=== PATIENT | female | born 1945 | race Caucasian/White ===

== ENCOUNTER 2019-06-24 15:20 | Emergency (ER) | payer MEDICARE, OTHER ==
[~2019-06-24] VITALS: Ht 157.5 cm; Wt 49.1 kg
[~2019-06-24 15:20] MED LIST: CHOLESTEROL MED; OMEP-110 PO; PARO40TA61 PO
--- NOTE | 2019-06-24 15:57 | NUR ---
LAB AT BS. PT C/O PAIN TO LT FOOT, "IT'S UGLY". FOOT SLIGHTLY DISCOLORED, PEDAL PULSE DIMINISHED, SKIN INTACT. PT DENIES TRAUMA. CONGESTED COUGH NOTED - REPORTS COUGH X 3-4 DAYS. RESP EVEN & UNLABORED, SPEECH CLEAR, ABLE TO SPEAK IN COMPLETE SENTENCES. XR NOW AT BS.
[2019-06-24 16:05] LABS: BASOPHILS # (AUTO) 0.04 x10^3/uL (0-0.1); BASOPHILS % (AUTO) 1 % (0-1); EOSINOPHILS # (AUTO) 0.03 x10^3/uL (0-0.4); EOSINOPHILS % (AUTO) 0 % (1-7); LYMPHOCYTES # (AUTO) 1.93 x10^3/uL (1-3.4); LYMPHOCYTES % (AUTO) 23 % (22-44); MD NO; MEAN CORPUSCULAR HEMOGLOBIN 32.1 pg (27.0-34.8); MEAN CORPUSCULAR HGB CONC 33.3 g/dL (32.4-35.8); MEAN CORPUSCULAR VOLUME 96.2 fL (80-100); MONOCYTES # (AUTO) 0.57 x10^3/uL (0.2-0.8); MONOCYTES % (AUTO) 7 % (2-9); NEUTROPHILS % (AUTO) 69 % (42-75); PLATELET COUNT 173 x10^3/uL (130-400); RED BLOOD COUNT 4.41 x10^6/uL (3.82-5.3)
[2019-06-24 16:16] LABS: ALBUMIN 3.7 g/dL (3.4-5.0); ANION GAP 6 mmol/L (5-15); CALCIUM 9.5 mg/dL (8.5-10.1); CHLORIDE 111 mmol/L (98-107); CREATININE 1.65 mg/dL (0.55-1.02)
[2019-06-24 16:24] VITALS: BP 176/77
[2019-06-24] MEDS ORDERED: SIMV40TA20 PO (16:24)
[2019-06-24] MEDS ORDERED: HTN MED (16:27)
--- NOTE | 2019-06-24 16:33 | NUR ---
AMBULATORY TO [facility] BR W/ LIMPING GAIT, USING OWN CANE.
--- NOTE | 2019-06-24 16:45 | NUR ---
RETURNED TO ED ROOM W/OUT INCIDENT
== END 2019-06-24 17:16 | disposition home or self-care (01) ==
LOC: ED 15:57
DX: J44.1 Chronic obstructive pulmonary disease with (acute) exacerbation (principal); R05 Cough
CPT/HCPCS: 36415; 71045; 80048; 82040; 83605; 85025; 99284

== ENCOUNTER 2019-07-24 12:27 | Inpatient (IN) | payer MEDICARE ==
[~2019-07-24] VITALS: Ht 154.9 cm; Wt 59.0 kg
[~2019-07-24 12:27] MED LIST changes: +HTN MED; +SIMV40TA20 PO
--- NOTE | 2019-07-24 13:27 | NUR ---
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
--- NOTE | 2019-07-24 14:17 | NUR ---
LISA MEDINA AT BEDSIDE FOR EVALUATION
[2019-07-24] MEDS ORDERED: CEFTRIAXONE PMX 1GM/50ML 50 ML IVPB ONE (14:30)
[2019-07-24] MEDS ORDERED: SODIUM CHLORIDE FLUSH 10ML SYR IVF ONE (14:30)
[2019-07-24] MEDS ORDERED: CEFTRIAXONE PMX 1GM/50ML 50 ML ONE (14:37)
[2019-07-24 14:49] LABS: BASOPHILS # (AUTO) 0.04 x10^3/uL (0-0.1); BASOPHILS % (AUTO) 1 % (0-1); EOSINOPHILS # (AUTO) 0.07 x10^3/uL (0-0.4); EOSINOPHILS % (AUTO) 1 % (1-7); LYMPHOCYTES # (AUTO) 1.86 x10^3/uL (1-3.4); LYMPHOCYTES % (AUTO) 27 % (22-44); MD NO; MEAN CORPUSCULAR HEMOGLOBIN 32.5 pg (27.0-34.8); MEAN CORPUSCULAR HGB CONC 33.4 g/dL (32.4-35.8); MEAN CORPUSCULAR VOLUME 97.5 fL (80-100); MONOCYTES # (AUTO) 0.45 x10^3/uL (0.2-0.8); MONOCYTES % (AUTO) 7 % (2-9); NEUTROPHILS # (AUTO) 4.56 x10^3/uL (1.8-6.8); NEUTROPHILS % (AUTO) 65 % (42-75); PLATELET COUNT 282 x10^3/uL (130-400); RED BLOOD COUNT 4.32 x10^6/uL (3.82-5.3); RED CELL DISTRIBUTION WIDTH 17.3 % (9.6-15.2)
[2019-07-24] MEDS ORDERED: MORPHINE SULFATE 4 MG/ML, 1ML ONE ×2 (14:58→16:21)
[2019-07-24] MEDS ORDERED: ONDANSETRON 2MG/ML, 2ML ONE (14:58)
[2019-07-24] MEDS ORDERED: ONDANSETRON 2MG/ML, 2ML IVPush ONE (15:00)
[2019-07-24] MEDS: MORPHINE SULFATE 4 MG/ML, 1ML IVPush PRN ×2 (15:00→16:23)
[2019-07-24 15:04] LABS: ALBUMIN 3.5 g/dL (3.4-5.0); ANION GAP 6 mmol/L (5-15); CALCIUM 9.2 mg/dL (8.5-10.1); CHLORIDE 109 mmol/L (98-107); CREATININE 1.28 mg/dL (0.55-1.02)
--- NOTE | 2019-07-24 15:30 | NUR ---
ULTRASOUND AT BEDSIDE
[2019-07-24] MEDS ORDERED: LABETALOL 5MG/ML, 20ML IVPush PRN (17:00)
[2019-07-24] MEDS ORDERED: HEPARIN 5,000 UNITS/ML, 1ML SQ SCH (17:00)
[2019-07-24] MEDS ORDERED: ONDANSETRON 2MG/ML, 2ML IVPush PRN (17:00)
[2019-07-24] MEDS ORDERED: ACETAMINOPHEN 325 MG TABLET PO PRN (17:00)
[2019-07-24] MEDS ORDERED: hydrALAzine 20 MG/ML, 1ML IVPush PRN (17:00)
[2019-07-24] MEDS ORDERED: HEPARIN 5,000 UNITS/ML, 1ML ONE (17:11)
[2019-07-24] MEDS ORDERED: NICOTINE 21 MG/24 HR PATCH.TD24 ONE (17:11)
[2019-07-24] MEDS: NICOTINE 21 MG/24 HR PATCH.TD24 TD SCH (17:16)
[2019-07-24] MEDS: SODIUM CHLORIDE 0.9% 1,000 ML IV SCH (17:21)
--- NOTE | 2019-07-24 17:25 | NUR ---
MEDICATION REQUESTED FROM PHARMACY
[2019-07-24] MEDS: MEROPENEM 1 GM in SODIUM CHLORIDE 0.9% 100 ML IV SCH (18:07)
--- NOTE | 2019-07-24 18:16 | NUR ---
REPORT CALLED DENYS STROUD
[2019-07-24 19:12] VITALS: BP 163/80
[2019-07-24 20:31] LABS: CHOL/HDL RATIO 2.7
[2019-07-24] MEDS ORDERED: SIMVASTATIN 40 MG TABLET PO SCH (21:00)
[2019-07-24] MEDS ORDERED: NALOXONE 0.4 MG/ML, 1ML IVPush ONE (21:00)
[2019-07-24] MEDS ORDERED: HEPARIN 5,000 UNITS/ML, 1ML IV ONE (21:30)
[2019-07-24] MEDS ORDERED: OMNIPAQUE 350 MG/ML, 100ML BOTTLE ONE (21:57)
[2019-07-24] MEDS: HEPARIN 25,000 UNITS/250ML PMX 250 ML IV PRN (22:38)
[2019-07-25 02:09] VITALS: BP 160/67
[2019-07-25] MEDS: MEROPENEM 1 GM in SODIUM CHLORIDE 0.9% 100 ML IV SCH ×3 (02:29→17:28)
[2019-07-25] MEDS: morphine SULFATE 10 MG/ML, 1ML IVPush PRN ×2 (04:47→07:57)
[2019-07-25 04:57] LABS: BASOPHILS # (AUTO) 0.06 x10^3/uL (0-0.1); BASOPHILS % (AUTO) 1 % (0-1); EOSINOPHILS % (AUTO) 1 % (1-7); LYMPHOCYTES # (AUTO) 1.75 x10^3/uL (1-3.4); LYMPHOCYTES % (AUTO) 25 % (22-44); MD NO; MEAN CORPUSCULAR HEMOGLOBIN 32.5 pg (27.0-34.8); MEAN CORPUSCULAR HGB CONC 32.8 g/dL (32.4-35.8); MEAN PLATELET VOLUME 8.4 fL (7.4-10.4); MONOCYTES # (AUTO) 0.53 x10^3/uL (0.2-0.8); MONOCYTES % (AUTO) 8 % (2-9); NEUTROPHILS % (AUTO) 65 % (42-75); PLATELET COUNT 224 x10^3/uL (130-400); RED BLOOD COUNT 3.76 x10^6/uL (3.82-5.3)
[2019-07-25 05:08] LABS: ALBUMIN 2.8 g/dL (3.4-5.0); ANION GAP 8 mmol/L (5-15); CALCIUM 8.4 mg/dL (8.5-10.1); CHLORIDE 113 mmol/L (98-107)
[2019-07-25 05:13] LABS: ALANINE AMINOTRANSFERASE 16 U/L (12-78); ALKALINE PHOSPHATASE 65 U/L (45-117); BILIRUBIN,TOTAL 0.4 mg/dL (0.2-1.0); CREATININE 1.07 mg/dL (0.55-1.02); TOTAL PROTEIN 6.5 g/dL (6.4-8.2)
[2019-07-25] MEDS: SODIUM CHLORIDE 0.9% 1,000 ML IV SCH ×2 (05:46→16:53)
[2019-07-25] MEDS: HEPARIN 5,000 UNITS/ML, 1ML IV PRN ×2 (06:19→21:08)
[2019-07-25] MEDS: PAROXETINE 20 MG TABLET PO SCH (07:44)
[2019-07-25] MEDS: OMEPRAZOLE 20 MG CAPSULE.DR PO SCH (07:44)
[2019-07-25] MEDS: AMLODIPINE 10 MG TAB PO SCH (08:47)
[2019-07-25 09:15] VITALS: BP 152/67
[2019-07-25 14:09] VITALS: BP 175/72
[2019-07-25] MEDS: OXYcodone IR 5MG TABLET PO PRN ×2 (15:41→21:33)
[2019-07-25] MEDS: NICOTINE 21 MG/24 HR PATCH.TD24 TD SCH (16:53)
[2019-07-25 19:38] VITALS: BP 175/70
[2019-07-25] MEDS: ATORVASTATIN 40 MG TABLET PO SCH (21:09)
[2019-07-26 00:22] VITALS: BP_SYST 177; BP_SYST 201; BP_DIAS 46; BP_DIAS 70
[2019-07-26] MEDS: SODIUM CHLORIDE 0.9% 1,000 ML IV SCH ×3 (02:11→22:09)
[2019-07-26] MEDS: MEROPENEM 1 GM in SODIUM CHLORIDE 0.9% 100 ML IV SCH ×3 (02:11→22:05)
[2019-07-26 02:13] VITALS: BP 160/61
[2019-07-26 03:10] LABS: BASOPHILS # (AUTO) 0.02 x10^3/uL (0-0.1); BASOPHILS % (AUTO) 0 % (0-1); EOSINOPHILS % (AUTO) 1 % (1-7); LYMPHOCYTES # (AUTO) 1.37 x10^3/uL (1-3.4); LYMPHOCYTES % (AUTO) 19 % (22-44); MD NO; MEAN CORPUSCULAR HEMOGLOBIN 32.4 pg (27.0-34.8); MEAN CORPUSCULAR HGB CONC 33.5 g/dL (32.4-35.8); MEAN CORPUSCULAR VOLUME 96.7 fL (80-100); MEAN PLATELET VOLUME 8.6 fL (7.4-10.4); MONOCYTES # (AUTO) 0.55 x10^3/uL (0.2-0.8); MONOCYTES % (AUTO) 8 % (2-9); NEUTROPHILS % (AUTO) 71 % (42-75); PLATELET COUNT 231 x10^3/uL (130-400); RED BLOOD COUNT 3.71 x10^6/uL (3.82-5.3); RED CELL DISTRIBUTION WIDTH 16.3 % (9.6-15.2)
[2019-07-26 03:21] LABS: ALANINE AMINOTRANSFERASE 13 U/L (12-78); ALBUMIN 2.7 g/dL (3.4-5.0); ANION GAP 8 mmol/L (5-15); CALCIUM 8.4 mg/dL (8.5-10.1); CHLORIDE 111 mmol/L (98-107); CREATININE 0.94 mg/dL (0.55-1.02)
[2019-07-26 03:23] LABS: ALKALINE PHOSPHATASE 63 U/L (45-117); BILIRUBIN,TOTAL 0.5 mg/dL (0.2-1.0); TOTAL PROTEIN 6.1 g/dL (6.4-8.2)
[2019-07-26] MEDS: HEPARIN 5,000 UNITS/ML, 1ML IV PRN ×2 (03:33→16:51)
[2019-07-26] MEDS: HEPARIN 25,000 UNITS/250ML PMX 250 ML IV PRN (04:31)
[2019-07-26] MEDS: AMLODIPINE 10 MG TAB PO SCH (08:30)
[2019-07-26] MEDS: OMEPRAZOLE 20 MG CAPSULE.DR PO SCH (08:30)
[2019-07-26] MEDS: PAROXETINE 20 MG TABLET PO SCH (08:31)
[2019-07-26 08:41] VITALS: BP 192/64
[2019-07-26 12:04] VITALS: BP 117/61
[2019-07-26] MEDS: OXYcodone IR 5MG TABLET PO PRN ×2 (14:31→20:54)
[2019-07-26] MEDS: NICOTINE 21 MG/24 HR PATCH.TD24 TD SCH (16:55)
[2019-07-26 19:07] VITALS: BP 128/71
[2019-07-26] MEDS: ATORVASTATIN 40 MG TABLET PO SCH (20:54)
[2019-07-27 02:02] VITALS: BP 151/74
[2019-07-27 05:13] LABS: BASOPHILS # (AUTO) 0.04 x10^3/uL (0-0.1); BASOPHILS % (AUTO) 1 % (0-1); EOSINOPHILS # (AUTO) 0.16 x10^3/uL (0-0.4); EOSINOPHILS % (AUTO) 2 % (1-7); LYMPHOCYTES # (AUTO) 2.08 x10^3/uL (1-3.4); LYMPHOCYTES % (AUTO) 27 % (22-44); MD NO; MEAN CORPUSCULAR HEMOGLOBIN 32.2 pg (27.0-34.8); MEAN CORPUSCULAR HGB CONC 32.9 g/dL (32.4-35.8); MEAN CORPUSCULAR VOLUME 97.7 fL (80-100); MONOCYTES # (AUTO) 0.64 x10^3/uL (0.2-0.8); MONOCYTES % (AUTO) 8 % (2-9); NEUTROPHILS # (AUTO) 4.86 x10^3/uL (1.8-6.8); NEUTROPHILS % (AUTO) 63 % (42-75); PLATELET COUNT 246 x10^3/uL (130-400); RED BLOOD COUNT 3.74 x10^6/uL (3.82-5.3)
[2019-07-27 05:27] LABS: CHLORIDE 112 mmol/L (98-107)
[2019-07-27] MEDS: HEPARIN 25,000 UNITS/250ML PMX 250 ML IV PRN (05:39)
[2019-07-27 05:44] LABS: ALANINE AMINOTRANSFERASE 18 U/L (12-78); ALBUMIN 2.9 g/dL (3.4-5.0); ALKALINE PHOSPHATASE 66 U/L (45-117); ANION GAP 7 mmol/L (5-15); BILIRUBIN,TOTAL 0.7 mg/dL (0.2-1.0); CALCIUM 8.5 mg/dL (8.5-10.1); TOTAL PROTEIN 6.6 g/dL (6.4-8.2)
[2019-07-27] MEDS ORDERED: PROTAMINE SULFATE 10 MG/ML, 5ML ONE (07:09)
[2019-07-27] MEDS ORDERED: HEPARIN 1,000 UNITS/ML, 30ML ONE (07:10)
[2019-07-27] MEDS ORDERED: THROMBIN 20,000 UNIT VIAL TP ONE (07:10)
[2019-07-27] MEDS ORDERED: BUPIVACAINE/PF 0.5% ONE (07:27)
[2019-07-27] MEDS ORDERED: EPINEPHRINE 1 MG/ML, 1ML ONE ×2 (07:27→09:53)
[2019-07-27] MEDS ORDERED: BUPIVACAINE/PF 0.25% ONE (07:27)
[2019-07-27 08:05] VITALS: BP 191/65
[2019-07-27] MEDS: AMLODIPINE 10 MG TAB PO SCH (09:00)
[2019-07-27] MEDS: PAROXETINE 20 MG TABLET PO SCH (09:00)
[2019-07-27] MEDS: OMEPRAZOLE 20 MG CAPSULE.DR PO SCH (09:00)
[2019-07-27] MEDS ORDERED: FENTANYL PF 250 MCG/5ML ONE (09:06)
[2019-07-27] MEDS ORDERED: LIDOCAINE-MPF 2% ,5ML ONE (09:12)
[2019-07-27] MEDS ORDERED: FENTANYL PF 100 MCG/2ML IV PRN (10:00)
[2019-07-27] MEDS ORDERED: hydrALAzine 20 MG/ML, 1ML IV PRN (10:00)
[2019-07-27] MEDS ORDERED: ACETAMINOPHEN 325 MG TABLET PO PRN (10:00)
[2019-07-27] MEDS ORDERED: MIDAZOLAM 1 MG/ML, 2ML IV PRN (10:00)
[2019-07-27] MEDS ORDERED: OXYcodone 5 MG/5 ML ORAL.SOL UDC PO PRN (10:00)
[2019-07-27] MEDS ORDERED: PROMETHAZINE 25 MG/ML, 1ML IVPush PRN (10:00)
[2019-07-27] MEDS ORDERED: HYDROmorphone 1 MG/ML, 1ML INJ IVPush PRN (10:00)
[2019-07-27] MEDS ORDERED: LABETALOL 5MG/ML, 20ML IV PRN (10:00)
[2019-07-27] MEDS ORDERED: ALBUTEROL SULFATE 2.5 MG/3 ML NPPB PRN (10:00)
[2019-07-27] MEDS ORDERED: MEPERIDINE/PF 25MG/0.5ML IVPush PRN (10:00)
[2019-07-27] MEDS ORDERED: ONDANSETRON 2MG/ML, 2ML ONE (11:09)
[2019-07-27] MEDS ORDERED: ROCURONIUM 10MG/ML,5ML ONE (11:09)
[2019-07-27] MEDS ORDERED: NEOSTIGMINE 1 MG/ML, 10ML ONE (11:09)
[2019-07-27] MEDS ORDERED: CEFAZOLIN 1,000 MG ONE (11:09)
[2019-07-27] MEDS ORDERED: GLYCOPYRROLATE 0.2MG/1ML, 5ML ONE (11:09)
[2019-07-27] MEDS ORDERED: DEXAMETHASONE 4 MG/ML, 1ML ONE (11:09)
[2019-07-27] MEDS ORDERED: SUCCINYLCHOLINE 20 MG/ML, 10ML ONE (11:09)
[2019-07-27] MEDS ORDERED: PROPOFOL 10 MG/ML, 20ML ONE (11:09)
[2019-07-27] MEDS ORDERED: hydrALAzine 20 MG/ML, 1ML ONE (13:26)
[2019-07-27 14:55] VITALS: BP 127/67
[2019-07-27] MEDS: SODIUM CHLORIDE 0.9% 1,000 ML IV SCH ×2 (15:49→17:21)
[2019-07-27] MEDS: CLOPIDOGREL 75 MG TABLET PO SCH (17:21)
[2019-07-27] MEDS: NICOTINE 21 MG/24 HR PATCH.TD24 TD SCH (17:21)
[2019-07-27] MEDS: MEROPENEM 1 GM in SODIUM CHLORIDE 0.9% 100 ML IV SCH (17:22)
[2019-07-27] MEDS: POTASSIUM CHLORIDE 20 MEQ in SODIUM CHLORIDE 0.9% 250 ML IV SCH (18:15)
[2019-07-27] MEDS: OXYcodone IR 5MG TABLET PO PRN (18:56)
[2019-07-27 20:16] VITALS: BP 149/70
[2019-07-27] MEDS: ATORVASTATIN 40 MG TABLET PO SCH (21:53)
[2019-07-27 23:44] VITALS: BP 127/74
[2019-07-28] MEDS: OXYcodone IR 5MG TABLET PO PRN ×3 (00:37→18:53)
[2019-07-28 03:22] VITALS: BP 120/67
[2019-07-28] MEDS: MEROPENEM 1 GM in SODIUM CHLORIDE 0.9% 100 ML IV SCH ×2 (04:57→17:09)
[2019-07-28 05:22] LABS: MEAN CORPUSCULAR HGB CONC 33.3 g/dL (32.4-35.8); MEAN CORPUSCULAR VOLUME 99.1 fL (80-100); MEAN PLATELET VOLUME 8.5 fL (7.4-10.4); PLATELET COUNT 199 x10^3/uL (130-400); RED BLOOD COUNT 3.02 x10^6/uL (3.82-5.3); RED CELL DISTRIBUTION WIDTH 17.2 % (9.6-15.2)
[2019-07-28 05:25] LABS: ALBUMIN 2.3 g/dL (3.4-5.0); ANION GAP 8 mmol/L (5-15); CALCIUM 7.8 mg/dL (8.5-10.1); CHLORIDE 118 mmol/L (98-107); CREATININE 0.87 mg/dL (0.55-1.02)
[2019-07-28 05:49] LABS: BASOPHILS # (AUTO) 0.01 x10^3/uL (0-0.1); BASOPHILS % (AUTO) 0 % (0-1); EOSINOPHILS # (AUTO) 0.01 x10^3/uL (0-0.4); EOSINOPHILS % (AUTO) 0 % (1-7); LYMPHOCYTES # (AUTO) 0.74 x10^3/uL (1-3.4); LYMPHOCYTES % (AUTO) 9 % (22-44); MD SCAN; MONOCYTES # (AUTO) 0.38 x10^3/uL (0.2-0.8); MONOCYTES % (AUTO) 5 % (2-9); NEUTROPHILS # (AUTO) 7.17 x10^3/uL (1.8-6.8); NEUTROPHILS % (AUTO) 86 % (42-75)
[2019-07-28] MEDS: POTASSIUM CHLORIDE 20 MEQ in SODIUM CHLORIDE 0.9% 250 ML IV SCH ×2 (06:30→18:06)
[2019-07-28] MEDS: SODIUM CHLORIDE 0.9% 1,000 ML IV SCH ×2 (06:30→18:06)
[2019-07-28 07:11] VITALS: BP 123/64
[2019-07-28] MEDS: OMEPRAZOLE 20 MG CAPSULE.DR PO SCH (08:38)
[2019-07-28] MEDS: AMLODIPINE 10 MG TAB PO SCH (08:38)
[2019-07-28] MEDS: PAROXETINE 20 MG TABLET PO SCH (08:39)
[2019-07-28] MEDS: CLOPIDOGREL 75 MG TABLET PO SCH (08:39)
[2019-07-28 12:48] VITALS: BP 122/66
[2019-07-28] MEDS: NICOTINE 21 MG/24 HR PATCH.TD24 TD SCH (17:09)
[2019-07-28 18:34] VITALS: BP 122/62
[2019-07-28] MEDS: ATORVASTATIN 40 MG TABLET PO SCH (21:55)
[2019-07-28] MEDS: ENOXAPARIN 40 MG/0.4 ML SQ SCH (21:55)
[2019-07-29 00:45] VITALS: BP 135/67
[2019-07-29] MEDS: MEROPENEM 1 GM in SODIUM CHLORIDE 0.9% 100 ML IV SCH ×2 (04:43→16:47)
[2019-07-29] MEDS: SODIUM CHLORIDE 0.9% 1,000 ML IV SCH ×2 (05:53→16:55)
[2019-07-29] MEDS: POTASSIUM CHLORIDE 20 MEQ in SODIUM CHLORIDE 0.9% 250 ML IV SCH ×3 (05:53→17:58)
[2019-07-29] MEDS: OXYcodone IR 5MG TABLET PO PRN ×3 (05:57→21:07)
[2019-07-29] MEDS: OMEPRAZOLE 20 MG CAPSULE.DR PO SCH (08:35)
[2019-07-29] MEDS: CLOPIDOGREL 75 MG TABLET PO SCH (08:35)
[2019-07-29] MEDS: AMLODIPINE 10 MG TAB PO SCH (08:35)
[2019-07-29] MEDS: PAROXETINE 20 MG TABLET PO SCH (08:35)
[2019-07-29 09:25] VITALS: BP 135/77
[2019-07-29 12:41] VITALS: BP 153/71
[2019-07-29 16:50] VITALS: BP 154/82
[2019-07-29] MEDS: NICOTINE 21 MG/24 HR PATCH.TD24 TD SCH (16:51)
[2019-07-29 19:29] VITALS: BP 169/78
[2019-07-29] MEDS: ENOXAPARIN 40 MG/0.4 ML SQ SCH (21:07)
[2019-07-29] MEDS: ATORVASTATIN 40 MG TABLET PO SCH (21:07)
[2019-07-30 02:00] VITALS: BP 150/69
[2019-07-30] MEDS: MEROPENEM 1 GM in SODIUM CHLORIDE 0.9% 100 ML IV SCH (04:50)
[2019-07-30] MEDS: OXYcodone IR 5MG TABLET PO PRN ×2 (04:59→09:40)
[2019-07-30] MEDS: POTASSIUM CHLORIDE 20 MEQ in SODIUM CHLORIDE 0.9% 250 ML IV SCH (05:41)
[2019-07-30 07:25] VITALS: BP 101/70
[2019-07-30] MEDS: SODIUM CHLORIDE 0.9% 1,000 ML IV SCH ×2 (08:29→17:34)
[2019-07-30 09:35] VITALS: BP 164/83
[2019-07-30] MEDS: AMLODIPINE 10 MG TAB PO SCH (09:35)
[2019-07-30] MEDS: OMEPRAZOLE 20 MG CAPSULE.DR PO SCH (09:35)
[2019-07-30] MEDS: PAROXETINE 20 MG TABLET PO SCH (09:37)
[2019-07-30] MEDS: CLOPIDOGREL 75 MG TABLET PO SCH (09:37)
[2019-07-30] MEDS ORDERED: FUROSEMIDE 40 MG TABLET PO SCH (12:00)
[2019-07-30] MEDS ORDERED: CLOP75TA PO (12:16)
[2019-07-30] MEDS ORDERED: NICO-487 TD (12:16)
[2019-07-30] MEDS ORDERED: FURO40TA6 PO (12:16)
[2019-07-30] MEDS ORDERED: OXYC5TAB3 PO (12:16)
[2019-07-30] MEDS ORDERED: AMLO10TA8 PO (12:16)
[2019-07-30 13:19] LABS: MEAN CORPUSCULAR HEMOGLOBIN 32.8 pg (27.0-34.8); MEAN CORPUSCULAR HGB CONC 33.3 g/dL (32.4-35.8); MEAN CORPUSCULAR VOLUME 98.6 fL (80-100); PLATELET COUNT 206 x10^3/uL (130-400); RED BLOOD COUNT 3.13 x10^6/uL (3.82-5.3); RED CELL DISTRIBUTION WIDTH 16.9 % (9.6-15.2)
[2019-07-30 13:37] VITALS: BP 156/73
[2019-07-30 14:04] LABS: MD YES
[2019-07-30 14:05] LABS: LYMPH#(MANUAL) 1.78 x10^3/uL (1-3.4); LYMPHS% (MANUAL) 18 % (22-44); MONOS% (MANUAL) 3 % (2-9); SEG#(MANUAL) 7.82 x10^3/uL (1.8-6.8); SEGS% (MANUAL) 79 % (42-75)
[2019-07-30 14:07] LABS: <PLATELET ESTIMATE> ADEQUATE; ANISOCYTOSIS 1+; GIANT PLATELETS 1+; LARGE PLATELETS 1+; POLYCHROMASIA 1+
[2019-07-30 16:01] VITALS: BP 147/78
[2019-07-30] MEDS: NICOTINE 21 MG/24 HR PATCH.TD24 TD SCH (16:06)
== END 2019-07-30 17:45 | disposition home or self-care (01) | DRG 270 ==
LOC: ED 16:17 → EDIP 17:32 → 3N 18:52 → 4NE 07-27 14:45
PROVIDERS: ADMIT Internal Medicine; ATTEND Family Medicine
PROC: 04CC0ZZ Extirpation of Matter from Right Common Iliac Artery, Open Approach (ICD-10-PCS; 2019-07-27)
PROC: 04UK0KZ Supplement Right Femoral Artery with Nonautologous Tissue Substitute, Open Approach (ICD-10-PCS; 2019-07-27)
PROC: 04C Lower Arteries, Extirpation (ICD-10-PCS; 2019-07-27)
PROC: B44LZZ3 Ultrasonography of Femoral Artery, Intravascular (ICD-10-PCS; 2019-07-27)
PROC: 047H3DZ Dilation of Right External Iliac Artery with Intraluminal Device, Percutaneous Approach (ICD-10-PCS; 2019-07-27)
PROC: 04CK0ZZ Extirpation of Matter from Right Femoral Artery, Open Approach (ICD-10-PCS; principal; 2019-07-27 09:30)
DX: I70.202 Unspecified atherosclerosis of native arteries of extremities, left leg (principal); N17.0 Acute kidney failure with tubular necrosis; I74.5 Embolism and thrombosis of iliac artery; L03.116 Cellulitis of left lower limb; E46 Unspecified protein-calorie malnutrition; E78.5 Hyperlipidemia, unspecified; I10 Essential (primary) hypertension; I70.8 Atherosclerosis of other arteries; J44.9 Chronic obstructive pulmonary disease, unspecified; R41.0 Disorientation, unspecified; W19.XXXA Unspecified fall, initial encounter; Z66 Do not resuscitate; F17.210 Nicotine dependence, cigarettes, uncomplicated; K21.9 Gastro-esophageal reflux disease without esophagitis; Y92.009 Unspecified place in unspecified non-institutional (private) residence as the place of occurrence of the external cause; Z88.0 Allergy status to penicillin; Z88.5 Allergy status to narcotic agent; Z98.49 Cataract extraction status, unspecified eye; Z82.5 Family history of asthma and other chronic lower respiratory diseases; Z82.49 Family history of ischemic heart disease and other diseases of the circulatory system; Z68.24 Body mass index [BMI] 24.0-24.9, adult; Z20.828 Contact with and (suspected) exposure to other viral communicable diseases
CPT/HCPCS: 36415; 37221; 37236; 75635; 80048; 80053; 80061; 80069; 82040; 83605; 83735; 84145; 85025; 85347; 85520; 86850; 86900; 87040; 88305; 93005; 93922; 93925; 96365; 96372; 96375; 96376; 99285; C1725; G0378; J0171; J0690; J0696; J1100; J1644; J1650; J2185; J2405; J2704; J2710; J2720; J3010; J3480; J3490; Q9967; C1751; C1757; C1768; C1769; C1874; C1876; C1894; J0330; J0360; J2270; J7030; J7050; U0001-CS

== ENCOUNTER 2019-08-05 14:40 | Inpatient (IN) | payer MEDICARE ==
[~2019-08-05] VITALS: Ht 157.5 cm; Wt 46.5 kg
[~2019-08-05 14:40] MED LIST changes: +AMLO10TA8 PO; +CLOP75TA PO; +FURO40TA6 PO; +NICO-487 TD; +OXYC5TAB3 PO
--- NOTE | 2019-08-05 15:56 | NUR ---
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
--- NOTE | 2019-08-05 16:20 | NUR ---
THIS IS A 73 YO F THAT DROVE HERSELF TO THE ED AFTER BEING SEEN IN FOR LT BIG TOE INFT "FOR MONTHS". PT HAS BEEN ADMITTED FOR THE SAME. PT PRESENTS WITH BLACK, DRY AND CRACKED LT BIG TOE. PT AMBULATES W/ A WALKER AT HOME. VSS, NADN. PIV STARTED, LABS AND CULTURES DRAWN. PT RESTING ON GURNEY W/ CALL LIGHT IN REACH, CONNECTED TO MONITORING. JENN SOLARES AT BEDSIDE FOR ED EVAL.
[2019-08-05] MEDS ORDERED: SODIUM CHLORIDE FLUSH 10ML SYR IVF ONE (16:30)
[2019-08-05 17:19] LABS: MEAN CORPUSCULAR HEMOGLOBIN 32.2 pg (27.0-34.8); MEAN CORPUSCULAR VOLUME 97.4 fL (80-100); MEAN PLATELET VOLUME 8.7 fL (7.4-10.4); PLATELET COUNT 330 x10^3/uL (130-400); RED CELL DISTRIBUTION WIDTH 16.5 % (9.6-15.2)
[2019-08-05 17:27] LABS: ALANINE AMINOTRANSFERASE 22 U/L (12-78); ANION GAP 7 mmol/L (5-15); CALCIUM 9.2 mg/dL (8.5-10.1); CHLORIDE 112 mmol/L (98-107); CREATININE 1.29 mg/dL (0.55-1.02)
[2019-08-05 17:29] LABS: ALKALINE PHOSPHATASE 85 U/L (45-117); BILIRUBIN,TOTAL 0.5 mg/dL (0.2-1.0); TOTAL PROTEIN 7.1 g/dL (6.4-8.2)
--- NOTE | 2019-08-05 18:10 | NUR ---
PT RESTING ON [facility] W/ CALL LIGHT IN REACH, VSS, NADN. AWAITING LAB RESULTS.
[2019-08-05 18:19] LABS: BASOPHILS # (AUTO) 0.04 x10^3/uL (0-0.1); BASOPHILS % (AUTO) 0 % (0-1); EOSINOPHILS % (AUTO) 1 % (1-7); LYMPHOCYTES # (AUTO) 1.88 x10^3/uL (1-3.4); LYMPHOCYTES % (AUTO) 21 % (22-44); MD SCAN; MONOCYTES # (AUTO) 0.59 x10^3/uL (0.2-0.8); MONOCYTES % (AUTO) 7 % (2-9); NEUTROPHILS # (AUTO) 6.33 x10^3/uL (1.8-6.8); NEUTROPHILS % (AUTO) 71 % (42-75)
--- NOTE | 2019-08-05 18:32 | NUR ---
ALL TESTS RESULTED. PT IS UP FOR RECHECK AT THIS TIME.
--- NOTE | 2019-08-05 18:53 | NUR ---
REPORT GIVEN TO ELENA STROUD.
[2019-08-05] MEDS ORDERED: CLINDAMYCIN PMX 300MG/50ML 50 ML IV ONE (19:45)
[2019-08-05] MEDS ORDERED: BISACODYL 10 MG SUPP PR PRN (20:30)
[2019-08-05] MEDS ORDERED: POLYETHYLENE GLYCOL 17 GM PACKET PO PRN (20:30)
[2019-08-05] MEDS ORDERED: ONDANSETRON ODT 4 MG PO PRN (20:30)
[2019-08-05] MEDS ORDERED: ACETAMINOPHEN 325 MG TABLET PO PRN (20:30)
[2019-08-05] MEDS ORDERED: SODIUM CHLORIDE FLUSH 10ML SYR IVF PRN (20:30)
[2019-08-05 22:04] VITALS: BP 162/59
[2019-08-05] MEDS: NICOTINE 21 MG/24 HR PATCH.TD24 TD SCH (23:13)
[2019-08-05] MEDS: HEPARIN 5,000 UNITS/ML, 1ML SQ SCH (23:13)
[2019-08-05] MEDS: OXYcodone IR 5MG TABLET PO PRN (23:14)
[2019-08-05] MEDS: SODIUM CHLORIDE FLUSH 10ML SYR IVF SCH (23:15)
[2019-08-05] MEDS: SIMVASTATIN 20 MG TABLET PO SCH (23:15)
[2019-08-06 00:16] VITALS: BP 183/61
[2019-08-06 00:31] VITALS: BP 176/63
[2019-08-06] MEDS ORDERED: hydrALAzine 20 MG/ML, 1ML IV PRN (01:00)
[2019-08-06 01:23] VITALS: BP 152/49
[2019-08-06] MEDS: CLINDAMYCIN PMX 600MG/50ML 50 ML IV SCH ×3 (04:19→20:05)
[2019-08-06 05:57] LABS: BASOPHILS # (AUTO) 0.06 x10^3/uL (0-0.1); BASOPHILS % (AUTO) 1 % (0-1); EOSINOPHILS # (AUTO) 0.16 x10^3/uL (0-0.4); EOSINOPHILS % (AUTO) 2 % (1-7); LYMPHOCYTES # (AUTO) 1.96 x10^3/uL (1-3.4); LYMPHOCYTES % (AUTO) 25 % (22-44); MD NO; MEAN CORPUSCULAR HGB CONC 32.6 g/dL (32.4-35.8); MEAN CORPUSCULAR VOLUME 98.1 fL (80-100); MEAN PLATELET VOLUME 8.3 fL (7.4-10.4); MONOCYTES # (AUTO) 0.52 x10^3/uL (0.2-0.8); MONOCYTES % (AUTO) 7 % (2-9); NEUTROPHILS # (AUTO) 5.11 x10^3/uL (1.8-6.8); NEUTROPHILS % (AUTO) 66 % (42-75); PLATELET COUNT 280 x10^3/uL (130-400); RED BLOOD COUNT 3.08 x10^6/uL (3.82-5.3); RED CELL DISTRIBUTION WIDTH 16.5 % (9.6-15.2)
[2019-08-06 06:08] LABS: ANION GAP 9 mmol/L (5-15); CALCIUM 8.6 mg/dL (8.5-10.1); CHLORIDE 113 mmol/L (98-107)
[2019-08-06] MEDS: SENNA/DOCUSATE TABLET PO SCH (07:47)
[2019-08-06] MEDS: HEPARIN 5,000 UNITS/ML, 1ML SQ SCH ×3 (07:48→23:38)
[2019-08-06] MEDS: OMEPRAZOLE 20 MG CAPSULE.DR PO SCH (07:48)
[2019-08-06] MEDS: PAROXETINE 20 MG TABLET PO SCH (07:48)
[2019-08-06] MEDS: SODIUM CHLORIDE FLUSH 10ML SYR IVF SCH ×2 (07:49→20:05)
[2019-08-06] MEDS: AMLODIPINE 10 MG TAB PO SCH (07:49)
[2019-08-06 08:22] VITALS: BP 163/62
[2019-08-06] MEDS ORDERED: FUROSEMIDE 40 MG TABLET PO SCH (09:00)
[2019-08-06 13:14] VITALS: BP 132/67
[2019-08-06 20:02] VITALS: BP 154/74
[2019-08-06] MEDS: SIMVASTATIN 20 MG TABLET PO SCH (20:05)
[2019-08-06] MEDS: NICOTINE 21 MG/24 HR PATCH.TD24 TD SCH (23:38)
[2019-08-07 02:10] VITALS: BP 130/75
[2019-08-07] MEDS: CLINDAMYCIN PMX 600MG/50ML 50 ML IV SCH ×3 (04:38→20:42)
[2019-08-07 06:56] VITALS: BP 148/65
[2019-08-07] MEDS: SENNA/DOCUSATE TABLET PO SCH ×2 (09:00→09:23)
[2019-08-07] MEDS: SODIUM CHLORIDE FLUSH 10ML SYR IVF SCH ×2 (09:22→21:38)
[2019-08-07] MEDS: PAROXETINE 20 MG TABLET PO SCH (09:22)
[2019-08-07] MEDS: AMLODIPINE 10 MG TAB PO SCH (09:22)
[2019-08-07] MEDS: HEPARIN 5,000 UNITS/ML, 1ML SQ SCH ×2 (09:22→15:53)
[2019-08-07] MEDS: OMEPRAZOLE 20 MG CAPSULE.DR PO SCH (09:22)
[2019-08-07] MEDS: OXYcodone IR 5MG TABLET PO PRN (09:23)
[2019-08-07 13:27] VITALS: BP 115/59
[2019-08-07 15:06] VITALS: BP 127/63
[2019-08-07] MEDS ORDERED: FENTANYL PF 250 MCG/5ML ONE (18:12)
[2019-08-07] MEDS: FLUCONAZOLE MC SCH (18:30)
[2019-08-07] MEDS ORDERED: EPHEDRINE 50 MG/ML, 1ML ONE (18:56)
[2019-08-07] MEDS ORDERED: CEFAZOLIN 1,000 MG ONE (18:56)
[2019-08-07] MEDS ORDERED: FENTANYL PF 100 MCG/2ML IV PRN (19:00)
[2019-08-07] MEDS ORDERED: hydrALAzine 20 MG/ML, 1ML IV PRN (19:00)
[2019-08-07] MEDS ORDERED: ONDANSETRON 2MG/ML, 2ML IVPush PRN (19:00)
[2019-08-07] MEDS ORDERED: ACETAMINOPHEN 325 MG TABLET PO PRN (19:00)
[2019-08-07] MEDS ORDERED: PROMETHAZINE 25 MG/ML, 1ML IVPush PRN (19:00)
[2019-08-07] MEDS ORDERED: LABETALOL 5MG/ML, 20ML IV PRN (19:00)
[2019-08-07] MEDS ORDERED: HYDROmorphone 1 MG/ML, 1ML INJ IVPush PRN (19:00)
[2019-08-07] MEDS ORDERED: OXYcodone 5 MG/5 ML ORAL.SOL UDC PO PRN (19:00)
[2019-08-07] MEDS ORDERED: DEXAMETHASONE 4 MG/ML, 1ML ONE (19:02)
[2019-08-07] MEDS ORDERED: BUPIVACAINE/PF 0.25% ONE (19:05)
[2019-08-07] MEDS ORDERED: PROPOFOL 10 MG/ML, 20ML ONE (19:08)
[2019-08-07] MEDS ORDERED: ONDANSETRON 2MG/ML, 2ML ONE (19:19)
[2019-08-07] MEDS ORDERED: SILVER SULF. CRM 1% , 25GM ONE (19:25)
[2019-08-07] MEDS ORDERED: OXYcodone 5 MG/5 ML ORAL.SOL UDC ONE (19:58)
[2019-08-07] MEDS ORDERED: FENTANYL PF 100 MCG/2ML ONE (19:58)
[2019-08-07 20:36] VITALS: BP 104/61
[2019-08-07] MEDS ORDERED: NYSTATIN/TRIAMCINOLONE CRM 15GM TP SCH (21:00)
[2019-08-07] MEDS: SIMVASTATIN 20 MG TABLET PO SCH (21:37)
[2019-08-07] MEDS: NICOTINE 21 MG/24 HR PATCH.TD24 TD SCH (21:39)
[2019-08-08 00:33] VITALS: BP 114/66
[2019-08-08] MEDS: HEPARIN 5,000 UNITS/ML, 1ML SQ SCH ×3 (00:46→17:26)
[2019-08-08] MEDS: FLUCONAZOLE MC SCH ×3 (02:30→18:30)
[2019-08-08] MEDS: CLINDAMYCIN PMX 600MG/50ML 50 ML IV SCH ×3 (03:58→20:22)
[2019-08-08 07:09] VITALS: BP 116/59
[2019-08-08 08:28] LABS: MEAN CORPUSCULAR HEMOGLOBIN 32.3 pg (27.0-34.8); MEAN CORPUSCULAR HGB CONC 32.9 g/dL (32.4-35.8); MEAN CORPUSCULAR VOLUME 98.2 fL (80-100); PLATELET COUNT 304 x10^3/uL (130-400); RED BLOOD COUNT 3.02 x10^6/uL (3.82-5.3); RED CELL DISTRIBUTION WIDTH 16.3 % (9.6-15.2)
[2019-08-08] MEDS ORDERED: FLUCONAZOLE 100 MG TABLET PO ONE (08:30)
[2019-08-08 08:44] LABS: BASOPHILS # (AUTO) 0.01 x10^3/uL (0-0.1); BASOPHILS % (AUTO) 0 % (0-1); EOSINOPHILS % (AUTO) 0 % (1-7); LYMPHOCYTES # (AUTO) 0.63 x10^3/uL (1-3.4); LYMPHOCYTES % (AUTO) 11 % (22-44); MD SCAN; MONOCYTES # (AUTO) 0.11 x10^3/uL (0.2-0.8); MONOCYTES % (AUTO) 2 % (2-9); NEUTROPHILS # (AUTO) 5.24 x10^3/uL (1.8-6.8); NEUTROPHILS % (AUTO) 88 % (42-75)
[2019-08-08 08:47] LABS: ANION GAP 10 mmol/L (5-15); CALCIUM 9.3 mg/dL (8.5-10.1); CHLORIDE 110 mmol/L (98-107); CREATININE 1.46 mg/dL (0.55-1.02)
[2019-08-08] MEDS: PAROXETINE 20 MG TABLET PO SCH (08:58)
[2019-08-08] MEDS: OMEPRAZOLE 20 MG CAPSULE.DR PO SCH (08:58)
[2019-08-08] MEDS: AMLODIPINE 10 MG TAB PO SCH (08:58)
[2019-08-08] MEDS: SENNA/DOCUSATE TABLET PO SCH (08:58)
[2019-08-08] MEDS: SODIUM CHLORIDE FLUSH 10ML SYR IVF SCH ×2 (09:05→21:25)
[2019-08-08] MEDS ORDERED: NYSTATIN/TRIAMCINOLONE CRM 15GM TP SCH ×2 (11:00)
[2019-08-08] MEDS: NYSTATIN/TRIAMCINOLONE CRM 15GM TP SCH ×3 (12:35→21:00)
[2019-08-08 12:53] VITALS: BP 117/66
[2019-08-08 18:48] VITALS: BP 125/52
[2019-08-08] MEDS: OXYcodone IR 5MG TABLET PO PRN (20:26)
[2019-08-08] MEDS: SIMVASTATIN 20 MG TABLET PO SCH (21:24)
[2019-08-08] MEDS: NICOTINE 21 MG/24 HR PATCH.TD24 TD SCH (22:40)
[2019-08-09 01:18] VITALS: BP 127/62
[2019-08-09] MEDS: HEPARIN 5,000 UNITS/ML, 1ML SQ SCH ×3 (01:22→17:05)
[2019-08-09] MEDS: FLUCONAZOLE MC SCH ×3 (02:30→18:30)
[2019-08-09] MEDS: CLINDAMYCIN PMX 600MG/50ML 50 ML IV SCH ×3 (04:09→20:23)
[2019-08-09] MEDS: NYSTATIN/TRIAMCINOLONE CRM 15GM TP SCH ×4 (05:37→20:26)
[2019-08-09 06:52] VITALS: BP 117/58
[2019-08-09] MEDS: SENNA/DOCUSATE TABLET PO SCH (09:00)
[2019-08-09 09:06] LABS: BASOPHILS # (AUTO) 0.04 x10^3/uL (0-0.1); BASOPHILS % (AUTO) 1 % (0-1); EOSINOPHILS # (AUTO) 0.06 x10^3/uL (0-0.4); EOSINOPHILS % (AUTO) 1 % (1-7); LYMPHOCYTES # (AUTO) 1.82 x10^3/uL (1-3.4); LYMPHOCYTES % (AUTO) 24 % (22-44); MD NO; MEAN CORPUSCULAR HGB CONC 32.5 g/dL (32.4-35.8); MEAN CORPUSCULAR VOLUME 98.3 fL (80-100); MEAN PLATELET VOLUME 8.3 fL (7.4-10.4); MONOCYTES # (AUTO) 0.42 x10^3/uL (0.2-0.8); MONOCYTES % (AUTO) 6 % (2-9); NEUTROPHILS % (AUTO) 70 % (42-75); PLATELET COUNT 297 x10^3/uL (130-400); RED BLOOD COUNT 3.14 x10^6/uL (3.82-5.3); RED CELL DISTRIBUTION WIDTH 16.5 % (9.6-15.2)
[2019-08-09 09:12] LABS: ANION GAP 10 mmol/L (5-15); CALCIUM 9.2 mg/dL (8.5-10.1); CHLORIDE 110 mmol/L (98-107); CREATININE 1.46 mg/dL (0.55-1.02)
[2019-08-09] MEDS: OMEPRAZOLE 20 MG CAPSULE.DR PO SCH (09:29)
[2019-08-09] MEDS: PAROXETINE 20 MG TABLET PO SCH (09:29)
[2019-08-09] MEDS: AMLODIPINE 10 MG TAB PO SCH (09:29)
[2019-08-09] MEDS: SODIUM CHLORIDE FLUSH 10ML SYR IVF SCH ×2 (09:30→20:26)
[2019-08-09] MEDS: OXYcodone IR 5MG TABLET PO PRN ×2 (09:49→20:24)
[2019-08-09 13:26] VITALS: BP 125/52
[2019-08-09] MEDS ORDERED: SILVER SULF. CRM 1% , 25GM TP ONE (13:30)
[2019-08-09 18:54] VITALS: BP 130/75
[2019-08-09] MEDS: SIMVASTATIN 20 MG TABLET PO SCH (20:24)
[2019-08-09] MEDS: NICOTINE 21 MG/24 HR PATCH.TD24 TD SCH (22:36)
[2019-08-10 01:02] VITALS: BP 125/82
[2019-08-10] MEDS: FLUCONAZOLE MC SCH (01:10)
[2019-08-10] MEDS: HEPARIN 5,000 UNITS/ML, 1ML SQ SCH ×3 (02:00→17:00)
[2019-08-10] MEDS: CLINDAMYCIN PMX 600MG/50ML 50 ML IV SCH ×3 (04:04→19:46)
[2019-08-10] MEDS: NYSTATIN/TRIAMCINOLONE CRM 15GM TP SCH ×4 (06:00→21:26)
[2019-08-10 06:50] VITALS: BP 130/72
[2019-08-10 07:32] LABS: BASOPHILS # (AUTO) 0.02 x10^3/uL (0-0.1); BASOPHILS % (AUTO) 0 % (0-1); EOSINOPHILS # (AUTO) 0.09 x10^3/uL (0-0.4); EOSINOPHILS % (AUTO) 1 % (1-7); LYMPHOCYTES # (AUTO) 2.27 x10^3/uL (1-3.4); LYMPHOCYTES % (AUTO) 30 % (22-44); MD NO; MEAN CORPUSCULAR HEMOGLOBIN 31.7 pg (27.0-34.8); MEAN CORPUSCULAR HGB CONC 32.2 g/dL (32.4-35.8); MEAN CORPUSCULAR VOLUME 98.4 fL (80-100); MEAN PLATELET VOLUME 8.9 fL (7.4-10.4); MONOCYTES # (AUTO) 0.43 x10^3/uL (0.2-0.8); MONOCYTES % (AUTO) 6 % (2-9); NEUTROPHILS # (AUTO) 4.67 x10^3/uL (1.8-6.8); NEUTROPHILS % (AUTO) 62 % (42-75); PLATELET COUNT 312 x10^3/uL (130-400); RED BLOOD COUNT 3.28 x10^6/uL (3.82-5.3); RED CELL DISTRIBUTION WIDTH 16.3 % (9.6-15.2)
[2019-08-10 07:42] LABS: ANION GAP 9 mmol/L (5-15); CALCIUM 9.3 mg/dL (8.5-10.1); CHLORIDE 108 mmol/L (98-107); CREATININE 1.29 mg/dL (0.55-1.02)
[2019-08-10] MEDS: SENNA/DOCUSATE TABLET PO SCH (09:00)
[2019-08-10] MEDS: AMLODIPINE 10 MG TAB PO SCH (09:09)
[2019-08-10] MEDS: OMEPRAZOLE 20 MG CAPSULE.DR PO SCH (09:09)
[2019-08-10] MEDS: PAROXETINE 20 MG TABLET PO SCH (09:09)
[2019-08-10] MEDS: SODIUM CHLORIDE FLUSH 10ML SYR IVF SCH ×2 (09:09→19:48)
[2019-08-10 13:47] VITALS: BP 119/61
[2019-08-10] MEDS: OXYcodone IR 5MG TABLET PO PRN ×2 (13:52→19:46)
[2019-08-10] MEDS: SODIUM CHLORIDE 0.9% 1,000 ML IV SCH (17:05)
[2019-08-10] MEDS: SIMVASTATIN 20 MG TABLET PO SCH (19:47)
[2019-08-10 20:32] VITALS: BP 134/62
[2019-08-10] MEDS: NICOTINE 21 MG/24 HR PATCH.TD24 TD SCH (21:26)
[2019-08-11 01:09] VITALS: BP 152/66
[2019-08-11] MEDS: SODIUM CHLORIDE 0.9% 1,000 ML IV SCH ×2 (01:22→08:17)
[2019-08-11] MEDS: HEPARIN 5,000 UNITS/ML, 1ML SQ SCH ×2 (01:22→09:46)
[2019-08-11] MEDS: CLINDAMYCIN PMX 600MG/50ML 50 ML IV SCH ×2 (04:01→12:07)
[2019-08-11] MEDS: NYSTATIN/TRIAMCINOLONE CRM 15GM TP SCH ×3 (04:37→16:00)
[2019-08-11 05:03] LABS: BASOPHILS # (AUTO) 0.05 x10^3/uL (0-0.1); BASOPHILS % (AUTO) 1 % (0-1); EOSINOPHILS # (AUTO) 0.11 x10^3/uL (0-0.4); EOSINOPHILS % (AUTO) 2 % (1-7); LYMPHOCYTES % (AUTO) 28 % (22-44); MD NO; MEAN CORPUSCULAR HEMOGLOBIN 32.6 pg (27.0-34.8); MEAN CORPUSCULAR HGB CONC 33.5 g/dL (32.4-35.8); MEAN CORPUSCULAR VOLUME 97.3 fL (80-100); MEAN PLATELET VOLUME 8.9 fL (7.4-10.4); MONOCYTES % (AUTO) 7 % (2-9); NEUTROPHILS % (AUTO) 63 % (42-75); PLATELET COUNT 250 x10^3/uL (130-400); RED BLOOD COUNT 2.91 x10^6/uL (3.82-5.3); RED CELL DISTRIBUTION WIDTH 16.1 % (9.6-15.2)
[2019-08-11 05:17] LABS: ANION GAP 6 mmol/L (5-15); CALCIUM 8.5 mg/dL (8.5-10.1); CHLORIDE 111 mmol/L (98-107); CREATININE 1.17 mg/dL (0.55-1.02)
[2019-08-11 07:56] VITALS: BP 162/58
[2019-08-11] MEDS: PAROXETINE 20 MG TABLET PO SCH (08:15)
[2019-08-11] MEDS: SODIUM CHLORIDE FLUSH 10ML SYR IVF SCH (08:15)
[2019-08-11] MEDS: SENNA/DOCUSATE TABLET PO SCH (08:16)
[2019-08-11] MEDS: OMEPRAZOLE 20 MG CAPSULE.DR PO SCH (08:16)
[2019-08-11] MEDS: AMLODIPINE 10 MG TAB PO SCH (08:17)
[2019-08-11 13:29] VITALS: BP_SYST 107; BP_SYST 164; BP_DIAS 68; BP_DIAS 72
[2019-08-11] MEDS ORDERED: CLIN300C8 PO (14:52)
== END 2019-08-11 17:15 | disposition home health service (06) | DRG 255 ==
LOC: ED 17:11 → EDIP 20:27 → 3N 21:50
PROVIDERS: ADMIT Family Medicine; ATTEND Hospitalist
PROC: 0Y6Q0Z0 Detachment at Left 1st Toe, Complete, Open Approach (ICD-10-PCS; principal; 2019-08-07 17:30)
DX: I96 Gangrene, not elsewhere classified (principal); N17.0 Acute kidney failure with tubular necrosis; M86.8X7 Other osteomyelitis, ankle and foot; L03.116 Cellulitis of left lower limb; J44.9 Chronic obstructive pulmonary disease, unspecified; D64.9 Anemia, unspecified; E78.5 Hyperlipidemia, unspecified; I10 Essential (primary) hypertension; L03.032 Cellulitis of left toe; F17.210 Nicotine dependence, cigarettes, uncomplicated; L97.524 Non-pressure chronic ulcer of other part of left foot with necrosis of bone; Z66 Do not resuscitate; Z82.49 Family history of ischemic heart disease and other diseases of the circulatory system; Z89.429 Acquired absence of other toe(s), unspecified side; Z98.49 Cataract extraction status, unspecified eye; Z88.5 Allergy status to narcotic agent; Z88.0 Allergy status to penicillin
CPT/HCPCS: 36415; 71045; 80048; 80053; 83605; 85025; 87040; 88305; 88311; 93005; 99285; G0378; J0690; J1100; J1644; J2405; J2704; J3010; J3490; J0360; J7030